=== PATIENT | male | born 1945 | race Caucasian/White ===

== ENCOUNTER 2020-09-12 07:01 | Day surgery (SDC) | payer MEDICARE ==
[~2020-09-12 07:01] MED LIST: CELEBREX200 M1 PO; FINASTERIDE5 MG PO; GAS RELIEF EXT125 MG PO; IMODIUM2 MG PO; METHIMAZOLE5 MG PO; MULTIVITAMIN1 TA1 PO; MYLANTA1 ML PO; PEPCID20 MG PO; TIZANIDINE4 MG PO; VITAMIN D5000 UNI1 PO
[2020-09-12] MEDS ORDERED: PERCOCET 5/325M1 TAB PO (09:41)
[2020-09-12 10:39] VITALS: BP 140/70
== END 2020-09-12 11:05 | disposition home or self-care (01) ==
LOC: ORM 07:01
PROVIDERS: ATTEND Surgery
PROC: 0FT44ZZ Resection of Gallbladder, Percutaneous Endoscopic Approach (ICD-10-PCS; principal; 2020-09-12)
DX: K80.10 Calculus of gallbladder with chronic cholecystitis without obstruction (principal); Z20.828 Contact with and (suspected) exposure to other viral communicable diseases
CPT/HCPCS: J0131; J1100; J1610; Q9967

== ENCOUNTER 2021-03-07 10:25 | Emergency (ER) | payer MEDICARE ==
[~2021-03-07] VITALS: Ht 170.2 cm; Wt 77.0 kg
[~2021-03-07 10:25] MED LIST changes: +PERCOCET 5/325M1 TAB PO
[2021-03-07 12:53] VITALS: BP 139/78
== END 2021-03-07 13:13 | disposition home or self-care (01) ==
LOC: ED 10:25
DX: S90.32XA Contusion of left foot, initial encounter (principal); F17.210 Nicotine dependence, cigarettes, uncomplicated; V86.59XA Driver of other special all-terrain or other off-road motor vehicle injured in nontraffic accident, initial encounter; Y93.53 Activity, golf; Y92.39 Other specified sports and athletic area as the place of occurrence of the external cause

== ENCOUNTER 2021-11-23 12:23 | Emergency (ER) | payer MEDICARE | END 2021-11-23 13:59 | disposition left against medical advice (07) | LOC: ED 12:23 → LWOBS 12:52 | DX: Z53.21 Procedure and treatment not carried out due to patient leaving prior to being seen by health care provider (principal) ==